=== PATIENT | male | born 1950 | race Caucasian/White ===

== ENCOUNTER 2017-04-13 03:59 | Inpatient (IN) | payer MEDICARE ==
[~2017-04-13] VITALS: Ht 177.8 cm; Wt 111.1 kg
[2017-04-13] VITALS (7 sets, daily range): BP systolic 127–167; BP diastolic 76–83
--- NOTE | ~2017-04-13 | ST ---
[place], [place] EXERCISE STRESS TEST REPORT NAME: TOI CARPENTER [facility] #: [id number] UNIT #: [id number] ROOM: 506 DOCTOR: ARSENIO CLAROS MD BIRTHDATE: [birth year] DOS: 04/13/2017 LEXISCAN STRESS EKG REPORT. REFERRING PHYSICIAN: Igor Mckeon. INDICATION: Precordial chest pain. The patient underwent standard protocol Lexiscan stress EKG. The patient's baseline EKG showed normal sinus rhythm with nonspecific ST-T wave changes. The patient's baseline heart rate is 81 beats per minute with a blood pressure of 112/62. The patient's peak heart rate was 101 with a blood pressure of 148/70. The patient had no chest pain, no EKG changes and no arrhythmias. SUMMARY OF FINDINGS: 1. Unremarkable Lexiscan stress. 2. Please see separate report for perfusion scan results. ARSENIO CLAROS MD CM:STRESS:EXERCISE STRESS TEST REPORT [id number] ARSENIO CLAROS MD
[~2017-04-13 03:59] MED LIST: ACTOS15 M1 PO; ANAPROX DS550 MG PO; ASPIRIN81 M1 PO; GLIPIZIDE5 MG PO; METFORMIN1000 MG PO; NEURONTIN100 MG PO; NORCO 5-325 TA1 EACH PO; Orphenadrine C100 MG PO; PLAVIX75 M1 PO; TRAZODONE50 MG PO; VITAMIN D32000 UNI1 PO; ZESTRIL2.5 MG PO; ZOCOR20 MG PO
[2017-04-13 04:25] LABS: BASO # 0.1 10*3/uL (0.0-0.1); EOS # 0.3 10*3/uL (0.0-0.4); EOS % 2.3 % (1.0-4.0); HEMATOCRIT 40.3 % (42.0-52.0); LYMPH # 3.1 10*3/uL (1.3-4.4); MEAN CELL VOLUME 89.6 fl (80.0-94.0); MEAN CORPUSCULAR HGB 31.1 pg (27.0-31.0); MEAN CORPUSCULAR HGB CONC 34.7 g/dl (33.0-37.0); MEAN PLATELET VOLUME 10.5 fl (9.6-12.3); MONO # 0.8 10*3/uL (0.1-1.0); NEUT # 6.7 10*3/uL (2.3-7.9); NEUT % 61.3 % (47.0-73.0); PLATELET COUNT AUTOMATED 191 10*3/uL (130-400); RED CELL DISTRI WIDTH 13.8 % (0-14.5); WHITE BLOOD COUNT 10.9 10*3/uL (4.8-10.8)
[2017-04-13 04:35] LABS: ACT PARTIAL THROMBO TIME 23.3 SECONDS (20.8-31.5)
[2017-04-13 04:41] LABS: ALBUMIN 3.7 gm/dl (3.1-4.5); ALKALINE PHOSPHATASE 101 U/L (45-117); BUN 13 mg/dl (7-24); CHLORIDE 104 mmol/L (98-107); MAGNESIUM 2.1 mg/dL (1.5-2.1); POTASSIUM 3.8 mmol/L (3.5-5.1); SGOT/AST 16 IU/L (3-35); SGPT/ALT 32 U/L (12-78); SODIUM 139 mmol/L (136-145)
[2017-04-13 04:47] LABS: TROPONIN I < 0.015 ng/ml (<0.045)
[2017-04-13] MEDS ORDERED: TRULICITY1.5 MG/0.5 SC (10:24)
== END 2017-04-13 18:47 | disposition home or self-care (01) | DRG 313 ==
LOC: ED 03:59 → EDHOLD 06:12 → 5E 06:12
PROVIDERS: Emergency Medicine Emergency Medical Services; ADMIT Internal Medicine
PROC: 4A02XM4 Measurement of Cardiac Total Activity, External Approach (ICD-10-PCS; principal; 2017-04-13)
PROC: 3E073KZ Introduction of Other Diagnostic Substance into Coronary Artery, Percutaneous Approach (ICD-10-PCS; principal; 2017-04-13)
DX: R07.89 Other chest pain (principal); E11.65 Type 2 diabetes mellitus with hyperglycemia; I10 Essential (primary) hypertension; E55.9 Vitamin D deficiency, unspecified; E78.5 Hyperlipidemia, unspecified; Z86.73 Personal history of transient ischemic attack (TIA), and cerebral infarction without residual deficits; Z87.891 Personal history of nicotine dependence

== ENCOUNTER 2017-04-21 05:24 | Inpatient (IN) | payer MEDICARE ==
[~2017-04-21] VITALS: Ht 177.8 cm; Wt 107.2 kg
--- NOTE | ~2017-04-21 | O ---
[place], [place] OPERATIVE NOTE NAME: TOI CARPENTER [facility] #: [id number] UNIT #: [id number] ROOM: 401 DOCTOR: MIKEL OLMSTEAD MD BIRTHDATE: [birth year] DOS: 04/21/2017 PREOPERATIVE DIAGNOSIS: Acute cholecystitis. POSTOPERATIVE DIAGNOSIS: Acute cholecystitis. PROCEDURE PERFORMED: Laparoscopic cholecystectomy. SURGEON: Mikel Olmstead M.D. WEBSITE PROGRAMMER: HOWARD. ANESTHESIA: General with endotracheal intubation. INDICATIONS: This is a 66-year-old gentleman who was admitted with acute cholecystitis. It was decided to take the patient to the operating room for a laparoscopic possible open cholecystectomy. The procedure and its complications explained to the patient in detail preoperatively. Complications that were discussed included but were not limited to bleeding, infection, hematoma/seroma/abscess formation, prolonged postoperative pain, damage to underlying vital structures, inadvertent injury to the common bile duct and biloma formation, he agreed to proceed. DESCRIPTION OF PROCEDURE: After identifying the patient, the patient was brought to the operating suite and laid in the supine position. After induction of general anesthesia, the parts were painted and draped in the usual sterile fashion. A timeout procedure was called and an incision in a transverse fashion was made below the umbilicus. The skin and the subcutaneous tissue were incised in the line of the incision. The fascia was incised and 2 stay sutures were taken on either side with the help of 0-Vicryl. A 12 mm Porfirio port was introduced and a pneumoperitoneum was created. Under direct vision, epigastric incision of 10 mm and two 5 mm incisions were made in the right upper quadrant and appropriate size ports were introduced. The gallbladder was surrounded with lot of adhesions to the omentum and it was acutely inflamed. Very carefully dissection was performed in order to separate the gallbladder away from the surrounding structures in order to better get complete mobilization of the gallbladder. Top down technique was employed with the help of electrocautery. After adequate dissection was completed, I elected to put in an Endoloop in the region of the fundus of the gallbladder because despite multiple attempts, adequate visualization of the cystic duct and the cystic artery could not be obtained. PDS Endoloop was placed in the fundus and it was knotted and tightened, the suture was cut with the help of scissors and the specimen was also incised with the help of electrocautery and scissors and removed from the peritoneal cavity within an EndoCatch bag. It was sent for histopathological diagnosis. Hemostasis was achieved in the liver bed with the help of electrocautery and copious amount of saline was used for irrigation. Thereafter through the lateral most port, a 15-Dominican round Rah-Hammer drain was placed and it was positioned in the liver bed and sutured to the overlying skin with the help of 3-0 nylon suture. It was then attached to a bulb. The other three incisions were infiltrated with local anesthesia (1% plain lidocaine) and [place], [place] OPERATIVE NOTE NAME: TOI CARPENTER UNIT #: [id number] ROOM: [facility] DOCTOR: MIKEL OLMSTEAD MD BIRTHDATE: [birth year] approximated with the help of 4-0 Vicryl in a subcuticular running fashion. This was in the region of the umbilicus. This was done after the stay sutures were tied together. The patient was then uneventfully extubated and brought back to the recovery room in stable fashion. There were no complications. Dr. Mikel Olmstead, the attending surgeon, was present throughout the operating case. Blood loss was 250 mL. Mikel Olmstead MD CM:OPRECORD:OPERATIVE NOTE [id number] MIKEL OLMSTEAD MD 04/23/17 1548 interface
--- NOTE | ~2017-04-21 | EKG ---
[place], [place] ELECTROCARDIOGRAM REPORT NAME: TOI CARPENTER UNIT #: [id number] ROOM: 401 DOCTOR: TIMMY MORAN,EBONY BIRTHDATE: [birth year] DOS: 04/21/2017 TIME: 1434 hours. INTERPRETATION: 1. Sinus rhythm. 2. Borderline prolonged QT interval. 3. Probable atrial enlargement. EBONY WARNER MD CM:EKGRPT:ELECTROCARDIOGRAM REPORT [id number] EBONY WARNER MD
[~2017-04-21 05:24] MED LIST changes: +TRULICITY1.5 MG/0.5 SC
[2017-04-21 05:33] VITALS: BP 186/82
[2017-04-21 06:17] LABS: BASO # 0.1 10*3/uL (0.0-0.1); BASO % 0.5 % (0.0-1.0); EOS % 0.1 % (1.0-4.0); HEMATOCRIT 42.2 % (42.0-52.0); HEMOGLOBIN 14.4 g/dl (14.0-18.0); LYMPH # 0.6 10*3/uL (1.3-4.4); LYMPH % 4.8 % (27.0-41.0); MEAN CELL VOLUME 90.8 fl (80.0-94.0); MEAN CORPUSCULAR HGB CONC 34.1 g/dl (33.0-37.0); MEAN PLATELET VOLUME 10.8 fl (9.6-12.3); MONO # 0.6 10*3/uL (0.1-1.0); MONO % 4.9 % (3.0-9.0); NEUT # 11.6 10*3/uL (2.3-7.9); NEUT % 89.3 % (47.0-73.0); PLATELET COUNT AUTOMATED 187 10*3/uL (130-400); RED BLOOD COUNT 4.65 10*6/uL (4.50-5.90); RED CELL DISTRI WIDTH 13.7 % (0-14.5); WHITE BLOOD COUNT 12.9 10*3/uL (4.8-10.8)
[2017-04-21 06:18] VITALS: BP 139/68
[2017-04-21 06:31] LABS: ALBUMIN 3.8 gm/dl (3.1-4.5); ALKALINE PHOSPHATASE 135 U/L (45-117); BUN 15 mg/dl (7-24); CHLORIDE 102 mmol/L (98-107); CREATININE 0.89 mg/dL (0.70-1.30); LIPASE 555 U/L (73-393); MAGNESIUM 2.2 mg/dL (1.5-2.1); POTASSIUM 4.3 mmol/L (3.5-5.1); SGOT/AST 317 IU/L (3-35); SGPT/ALT 244 U/L (12-78); SODIUM 137 mmol/L (136-145); TOTAL PROTEIN 7.8 gm/dL (6.4-8.2)
[2017-04-21 06:39] LABS: TROPONIN I < 0.015 ng/ml (<0.045)
[2017-04-21] MEDS ORDERED: Zofran4 MG PO (06:58)
[2017-04-21 13:15] VITALS: BP 180/80
[2017-04-21 15:02] LABS: BILIRUBIN 1+ (NEGATIVE); BLOOD TRACE-LYSED (NEGATIVE); CLARITY CLEAR (CLEAR); COLOR YELLOW (YELLOW); GLUCOSE 3+ (NEGATIVE); KETONE 2+ (NEGATIVE); LEUKO ESTERASE NEGATIVE (NEGATIVE); NITRITE NEGATIVE (NEGATIVE)
[2017-04-21 15:05] LABS: LIPASE 268 U/L (73-393)
[2017-04-21 15:06] LABS: TROPONIN I < 0.015 ng/ml (<0.045)
[2017-04-21 15:11] LABS: BACTERIA TRACE
[2017-04-21 16:50] VITALS: BP 198/108
[2017-04-21 17:00] VITALS: BP 216/98
[2017-04-21 20:00] VITALS: BP 178/80
[2017-04-22] VITALS: BP 122/51
[2017-04-22 07:40] LABS: HEMATOCRIT 44.1 % (42.0-52.0); HEMOGLOBIN 15.1 g/dl (14.0-18.0); MEAN CELL VOLUME 90.7 fl (80.0-94.0); MEAN CORPUSCULAR HGB 31.1 pg (27.0-31.0); MEAN CORPUSCULAR HGB CONC 34.2 g/dl (33.0-37.0); MEAN PLATELET VOLUME 10.7 fl (9.6-12.3); PLATELET COUNT AUTOMATED 220 10*3/uL (130-400); RED BLOOD COUNT 4.86 10*6/uL (4.50-5.90); WHITE BLOOD COUNT 27.4 10*3/uL (4.8-10.8)
[2017-04-22 08:00] VITALS: BP 160/82
[2017-04-22 08:09] LABS: HEPATITIS B SURFACE AG Negative (Negative); HEPATITIS C VIRUS ANTIBODY <0.1 s/co (0.0-0.9)
[2017-04-22 08:11] LABS: PLATELET SUFFICIENCY NORMAL (NORMAL); TOTAL CELLS COUNTED 100 #CELLS
[2017-04-22 08:15] LABS: BUN 12 mg/dl (7-24); CHLORIDE 103 mmol/L (98-107); CHOLESTEROL 78 mg/dL (<200); CREATININE 0.89 mg/dL (0.70-1.30); MAGNESIUM 2.4 mg/dL (1.5-2.1); PHOSPHOROUS 2.2 mg/dL (2.5-4.9); POTASSIUM 3.8 mmol/L (3.5-5.1); SODIUM 136 mmol/L (136-145); TRIGLYCERIDES 85 mg/dl (<150); VLDL CHOLESTEROL 17 mg/dL (6-40)
[2017-04-22 08:16] LABS: HDL CHOLESTEROL 48 mg/dl (40-60); LDL CHOLESTEROL 13 mg/dL (9-159)
[2017-04-22 09:17] LABS: ALBUMIN 3.7 gm/dl (3.1-4.5); ALKALINE PHOSPHATASE 162 U/L (45-117); BUN 11 mg/dl (7-24); CHLORIDE 102 mmol/L (98-107); LIPASE 173 U/L (73-393); POTASSIUM 3.8 mmol/L (3.5-5.1); SGOT/AST 173 IU/L (3-35); SGPT/ALT 547 U/L (12-78); SODIUM 139 mmol/L (136-145); TOTAL PROTEIN 8.3 gm/dL (6.4-8.2)
[2017-04-22 09:28] LABS: ALBUMIN 3.7 gm/dl (3.1-4.5); BILIRUBIN, DIRECT 3.2 mg/dL (0.0-0.2); TOTAL PROTEIN 8.3 gm/dL (6.4-8.2)
[2017-04-22 12:00] VITALS: BP 140/80
[2017-04-22 16:00] VITALS: BP 180/87
[2017-04-22 20:00] VITALS: BP 142/65
[2017-04-23] VITALS (10 sets, daily range): BP systolic 120–166; BP diastolic 57–77
[2017-04-23 06:17] LABS: HEMATOCRIT 40.3 % (42.0-52.0); HEMOGLOBIN 13.6 g/dl (14.0-18.0); MEAN CORPUSCULAR HGB 31.8 pg (27.0-31.0); MEAN CORPUSCULAR HGB CONC 33.7 g/dl (33.0-37.0); PLATELET COUNT AUTOMATED 195 10*3/uL (130-400); RED BLOOD COUNT 4.28 10*6/uL (4.50-5.90); WHITE BLOOD COUNT 23.4 10*3/uL (4.8-10.8)
[2017-04-23 06:19] LABS: MEAN CELL VOLUME 94.2 fl (80.0-94.0)
[2017-04-23 06:24] LABS: ALBUMIN 2.9 gm/dl (3.1-4.5); ALKALINE PHOSPHATASE 117 U/L (45-117); BUN 12 mg/dl (7-24); CHLORIDE 106 mmol/L (98-107); CREATININE 0.61 mg/dL (0.70-1.30); LIPASE 110 U/L (73-393); MAGNESIUM 2.3 mg/dL (1.5-2.1); PHOSPHOROUS 1.5 mg/dL (2.5-4.9); POTASSIUM 3.7 mmol/L (3.5-5.1); SGOT/AST 42 IU/L (3-35); SGPT/ALT 275 U/L (12-78); SODIUM 137 mmol/L (136-145); TOTAL PROTEIN 7.2 gm/dL (6.4-8.2)
[2017-04-23 06:48] LABS: PLATELET SUFFICIENCY NORMAL (NORMAL); TOTAL CELLS COUNTED 100 #CELLS
[2017-04-24] VITALS: BP 161/68
[2017-04-24 04:00] VITALS: BP 159/76
[2017-04-24 06:03] LABS: MAGNESIUM 2.3 mg/dL (1.5-2.1); PHOSPHOROUS 1.7 mg/dL (2.5-4.9)
[2017-04-24 06:09] LABS: ALBUMIN 2.4 gm/dl (3.1-4.5); BUN 15 mg/dl (7-24); CHLORIDE 108 mmol/L (98-107); CREATININE 0.54 mg/dL (0.70-1.30); POTASSIUM 3.7 mmol/L (3.5-5.1); SGOT/AST 31 IU/L (3-35); SGPT/ALT 173 U/L (12-78); SODIUM 141 mmol/L (136-145); TOTAL PROTEIN 6.5 gm/dL (6.4-8.2)
[2017-04-24 06:10] LABS: ALKALINE PHOSPHATASE 101 U/L (45-117)
[2017-04-24 06:13] LABS: BASO # 0.1 10*3/uL (0.0-0.1); BASO % 0.4 % (0.0-1.0); EOS # 0.1 10*3/uL (0.0-0.4); EOS % 0.7 % (1.0-4.0); LYMPH # 1.2 10*3/uL (1.3-4.4); LYMPH % 8.9 % (27.0-41.0); MEAN CELL VOLUME 95.6 fl (80.0-94.0); MEAN CORPUSCULAR HGB 31.4 pg (27.0-31.0); MEAN CORPUSCULAR HGB CONC 32.9 g/dl (33.0-37.0); MEAN PLATELET VOLUME 11.1 fl (9.6-12.3); MONO % 7.4 % (3.0-9.0); NEUT # 10.9 10*3/uL (2.3-7.9); PLATELET COUNT AUTOMATED 188 10*3/uL (130-400); RED BLOOD COUNT 3.66 10*6/uL (4.50-5.90); RED CELL DISTRI WIDTH 14.2 % (0-14.5); WHITE BLOOD COUNT 13.3 10*3/uL (4.8-10.8)
[2017-04-24 06:53] LABS: HEMOGLOBIN 11.5 g/dl (14.0-18.0)
[2017-04-24 08:00] VITALS: BP 159/80
[2017-04-24 12:00] VITALS: BP 164/78
[2017-04-24 16:00] VITALS: BP 151/68
[2017-04-24 20:00] VITALS: BP 133/54
[2017-04-25] VITALS: BP 158/82
[2017-04-25 04:00] VITALS: BP 168/75
[2017-04-25 06:29] LABS: BASO # 0.1 10*3/uL (0.0-0.1); BASO % 0.6 % (0.0-1.0); EOS # 0.4 10*3/uL (0.0-0.4); EOS % 3.6 % (1.0-4.0); HEMATOCRIT 34.1 % (42.0-52.0); HEMOGLOBIN 11.4 g/dl (14.0-18.0); LYMPH # 1.6 10*3/uL (1.3-4.4); LYMPH % 15.5 % (27.0-41.0); MEAN CELL VOLUME 94.7 fl (80.0-94.0); MEAN CORPUSCULAR HGB 31.7 pg (27.0-31.0); MEAN CORPUSCULAR HGB CONC 33.4 g/dl (33.0-37.0); MEAN PLATELET VOLUME 10.6 fl (9.6-12.3); MONO # 0.8 10*3/uL (0.1-1.0); MONO % 8.4 % (3.0-9.0); NEUT # 7.1 10*3/uL (2.3-7.9); NEUT % 71.6 % (47.0-73.0); PLATELET COUNT AUTOMATED 193 10*3/uL (130-400); RED CELL DISTRI WIDTH 13.7 % (0-14.5)
[2017-04-25 06:42] LABS: ALBUMIN 2.3 gm/dl (3.1-4.5); BUN 10 mg/dl (7-24); CHLORIDE 107 mmol/L (98-107); CREATININE 0.48 mg/dL (0.70-1.30); LIPASE 121 U/L (73-393); MAGNESIUM 2.2 mg/dL (1.5-2.1); PHOSPHOROUS 1.9 mg/dL (2.5-4.9); POTASSIUM 3.6 mmol/L (3.5-5.1); SGPT/ALT 118 U/L (12-78); SODIUM 141 mmol/L (136-145); TOTAL PROTEIN 6.2 gm/dL (6.4-8.2)
[2017-04-25 06:43] LABS: ALKALINE PHOSPHATASE 93 U/L (45-117); SGOT/AST 22 IU/L (3-35)
[2017-04-25 08:00] VITALS: BP 159/74
[2017-04-25] MEDS ORDERED: Percocet 325 MG1 TAB PO (10:45)
== END 2017-04-25 11:25 | disposition home or self-care (01) | DRG 853 ==
LOC: ED 05:24 → 4E 15:53
PROVIDERS: Emergency Medicine; Student in an Organized Health Care Education/Training Program; Surgery; ADMIT Emergency Medicine
PROC: 0FT44ZZ Resection of Gallbladder, Percutaneous Endoscopic Approach (ICD-10-PCS; principal; 2017-04-21)
DX: A41.9 Sepsis, unspecified organism (principal); K85.90 Acute pancreatitis without necrosis or infection, unspecified; K81.0 Acute cholecystitis; E83.41 Hypermagnesemia; R17 Unspecified jaundice; E66.01 Morbid (severe) obesity due to excess calories; I16.0 Hypertensive urgency; I10 Essential (primary) hypertension; E11.9 Type 2 diabetes mellitus without complications; E78.00 Pure hypercholesterolemia, unspecified; Z86.73 Personal history of transient ischemic attack (TIA), and cerebral infarction without residual deficits; Z79.84 Long term (current) use of oral hypoglycemic drugs; Z79.82 Long term (current) use of aspirin; Z79.899 Other long term (current) drug therapy; Z87.891 Personal history of nicotine dependence; Z68.33 Body mass index [BMI] 33.0-33.9, adult; Z84.89 Family history of other specified conditions; Z82.49 Family history of ischemic heart disease and other diseases of the circulatory system

== ENCOUNTER 2019-01-09 01:00 | Emergency (ER) | payer MEDICARE ==
[~2019-01-09] VITALS: Ht 177.8 cm; Wt 108.9 kg
[~2019-01-09 01:00] MED LIST changes: +Percocet 325 MG1 TAB PO; +Zofran4 MG PO
[2019-01-09 01:21] LABS: BASO # 0.1 10*3/uL (0.0-0.1); BASO % 1.3 % (0.0-1.0); EOS # 0.2 10*3/uL (0.0-0.4); EOS % 2.6 % (1.0-4.0); HEMATOCRIT 48.2 % (42.0-52.0); HEMOGLOBIN 16.8 g/dl (14.0-18.0); LYMPH # 2.6 10*3/uL (1.3-4.4); LYMPH % 29.3 % (27.0-41.0); MEAN CELL VOLUME 88.6 fl (80.0-94.0); MEAN CORPUSCULAR HGB 30.9 pg (27.0-31.0); MEAN CORPUSCULAR HGB CONC 34.9 g/dl (33.0-37.0); MEAN PLATELET VOLUME 10.7 fl (9.6-12.3); MONO # 0.7 10*3/uL (0.1-1.0); MONO % 8.2 % (3.0-9.0); NEUT # 5.2 10*3/uL (2.3-7.9); NEUT % 58.4 % (47.0-73.0); PLATELET COUNT AUTOMATED 210 10*3/uL (130-400); RED BLOOD COUNT 5.44 10*6/uL (4.50-5.90); RED CELL DISTRI WIDTH 13.4 % (0-14.5); WHITE BLOOD COUNT 8.9 10*3/uL (4.8-10.8)
[2019-01-09 01:25] LABS: BILIRUBIN NEGATIVE (NEGATIVE); BLOOD 3+ (NEGATIVE); CLARITY SL CLOUDY (CLEAR); COLOR YELLOW (YELLOW); GLUCOSE 3+ (NEGATIVE); KETONE NEGATIVE (NEGATIVE); LEUKO ESTERASE 1+ (NEGATIVE); NITRITE NEGATIVE (NEGATIVE); PH 5.5 (5.0-9.0); SPECIFIC GRAVITY 1.015 (1.005-1.030)
[2019-01-09 01:34] LABS: BACTERIA 1+; RBC 41-50 rbc/hpf (0-2); WBC 21-30 wbc/hpf (0-5)
[2019-01-09 01:37] LABS: ALKALINE PHOSPHATASE 119 U/L (45-117); BUN 8 mg/dl (7-24); CHLORIDE 103 mmol/L (98-107); CREATININE 1.01 mg/dL (0.70-1.30); POTASSIUM 4.2 mmol/L (3.5-5.1); SGOT/AST 26 IU/L (3-35); SGPT/ALT 39 U/L (12-78); SODIUM 136 mmol/L (136-145); TOTAL PROTEIN 8.2 gm/dL (6.4-8.2)
[2019-01-09] MEDS ORDERED: SEPTDS PO ×2 (02:08→02:21)
== END 2019-01-09 02:24 | disposition home or self-care (01) ==
LOC: ED 01:00
PROVIDERS: Student in an Organized Health Care Education/Training Program
DX: N39.0 Urinary tract infection, site not specified (principal); E11.9 Type 2 diabetes mellitus without complications; I10 Essential (primary) hypertension; E78.5 Hyperlipidemia, unspecified; E66.01 Morbid (severe) obesity due to excess calories; Z87.891 Personal history of nicotine dependence; Z87.442 Personal history of urinary calculi; Z79.899 Other long term (current) drug therapy; Z79.82 Long term (current) use of aspirin; Z79.84 Long term (current) use of oral hypoglycemic drugs

== ENCOUNTER → 2019-01-18 | Outpatient (CLI) | payer MEDICARE ==
[~2019-01-18] MED LIST changes: +SEPTDS PO
== END | disposition home or self-care (01) ==
LOC: CT 10:29
DX: R31.9 Hematuria, unspecified (principal)

== ENCOUNTER 2019-07-17 20:00 | Emergency (ER) | payer MEDICARE ==
[~2019-07-17] VITALS: Ht 180.3 cm; Wt 108.9 kg
[~2019-07-17 20:00] MED LIST changes: +DOXYCYCLINE100 M3 PO
[2019-07-17 21:08] LABS: BASO # 0.1 10*3/uL (0.0-0.1); BASO % 0.7 % (0.0-1.0); EOS # 0.1 10*3/uL (0.0-0.4); EOS % 0.5 % (1.0-4.0); HEMOGLOBIN 17.7 g/dl (14.0-18.0); LYMPH # 1.5 10*3/uL (1.3-4.4); LYMPH % 8.1 % (27.0-41.0); MEAN CELL VOLUME 89.6 fl (80.0-94.0); MEAN CORPUSCULAR HGB 31.1 pg (27.0-31.0); MEAN CORPUSCULAR HGB CONC 34.7 g/dl (33.0-37.0); MEAN PLATELET VOLUME 10.3 fl (9.6-12.3); MONO % 5.5 % (3.0-9.0); NEUT # 15.5 10*3/uL (2.3-7.9); NEUT % 84.8 % (47.0-73.0); PLATELET COUNT AUTOMATED 282 10*3/uL (130-400); RED BLOOD COUNT 5.69 10*6/uL (4.50-5.90); RED CELL DISTRI WIDTH 13.7 % (0-14.5); WHITE BLOOD COUNT 18.3 10*3/uL (4.8-10.8)
[2019-07-17 21:22] LABS: INTERNATIONAL NORM RATIO 0.9 (2.0-3.5)
[2019-07-17 21:31] LABS: ALKALINE PHOSPHATASE 145 U/L (45-117); BUN 15 mg/dl (7-24); CHLORIDE 103 mmol/L (98-107); CREATININE 1.17 mg/dL (0.70-1.30); POTASSIUM 4.3 mmol/L (3.5-5.1); SGOT/AST 21 IU/L (3-35); SGPT/ALT 31 U/L (12-78); SODIUM 134 mmol/L (136-145); TOTAL PROTEIN 8.4 gm/dL (6.4-8.2)
[2019-07-17] MEDS ORDERED: PYRIDIUM200 M1 PO (22:52)
== END 2019-07-18 00:06 | disposition left against medical advice (07) ==
LOC: ED 20:00
PROVIDERS: Physician Assistant
DX: T83.038A Leakage of other urinary catheter, initial encounter (principal); I10 Essential (primary) hypertension; E11.9 Type 2 diabetes mellitus without complications; Z79.899 Other long term (current) drug therapy; Z79.82 Long term (current) use of aspirin; Z87.891 Personal history of nicotine dependence; Z86.73 Personal history of transient ischemic attack (TIA), and cerebral infarction without residual deficits; Y84.6 Urinary catheterization as the cause of abnormal reaction of the patient, or of later complication, without mention of misadventure at the time of the procedure; Y92.89 Other specified places as the place of occurrence of the external cause

== ENCOUNTER 2020-10-23 15:21 | Emergency (ER) | payer MEDICARE ==
[~2020-10-23] VITALS: Ht 180.3 cm; Wt 102.1 kg
[~2020-10-23 15:21] MED LIST changes: +PYRIDIUM200 M1 PO
[2020-10-23 16:00] LABS: BASO # 0.1 10*3/uL (0.0-0.1); BASO % 0.7 % (0.0-1.0); EOS # 0.1 10*3/uL (0.0-0.4); EOS % 0.6 % (1.0-4.0); HEMATOCRIT 40.4 % (42.0-52.0); LYMPH # 1.3 10*3/uL (1.3-4.4); LYMPH % 12.7 % (27.0-41.0); MEAN CELL VOLUME 85.2 fl (80.0-94.0); MEAN CORPUSCULAR HGB 29.1 pg (27.0-31.0); MEAN CORPUSCULAR HGB CONC 34.2 g/dl (33.0-37.0); MEAN PLATELET VOLUME 9.9 fl (9.6-12.3); MONO # 0.6 10*3/uL (0.1-1.0); MONO % 5.6 % (3.0-9.0); NEUT # 7.9 10*3/uL (2.3-7.9); PLATELET COUNT AUTOMATED 279 10*3/uL (130-400); RED BLOOD COUNT 4.74 10*6/uL (4.50-5.90); RED CELL DISTRI WIDTH 15.3 % (0-14.5); WHITE BLOOD COUNT 9.8 10*3/uL (4.8-10.8)
[2020-10-23 16:14] LABS: ALBUMIN 3.7 gm/dl (3.1-4.5); ALKALINE PHOSPHATASE 133 U/L (45-117); BUN 17 mg/dl (7-24); CHLORIDE 106 mmol/L (98-107); CREATININE 1.05 mg/dL (0.70-1.30); POTASSIUM 4.2 mmol/L (3.5-5.1); SGOT/AST 7 IU/L (3-35); SGPT/ALT 14 U/L (12-78); SODIUM 137 mmol/L (136-145); TOTAL PROTEIN 8.1 gm/dL (6.4-8.2)
[2020-10-23] MEDS ORDERED: SEPTDS PO (18:11)
[2020-10-23] MEDS ORDERED: CEPHALEXIN500 M1 PO (18:11)
== END 2020-10-23 18:38 | disposition home or self-care (01) ==
LOC: ED 15:21
PROVIDERS: Physician Assistant
DX: L08.9 Local infection of the skin and subcutaneous tissue, unspecified (principal); E11.9 Type 2 diabetes mellitus without complications; I10 Essential (primary) hypertension; Z79.899 Other long term (current) drug therapy; Z79.2 Long term (current) use of antibiotics; Z79.82 Long term (current) use of aspirin; Z98.890 Other specified postprocedural states; Z87.891 Personal history of nicotine dependence; Z86.73 Personal history of transient ischemic attack (TIA), and cerebral infarction without residual deficits; Z87.442 Personal history of urinary calculi

== ENCOUNTER 2021-04-17 18:41 | Emergency (ER) | payer MEDICARE ==
[~2021-04-17] VITALS: Ht 182.9 cm; Wt 120.2 kg
[~2021-04-17 18:41] MED LIST changes: +CEPHALEXIN500 M1 PO
[2021-04-17] MEDS ORDERED: SEPTDS PO ×2 (19:14)
== END 2021-04-17 19:38 | disposition home or self-care (01) ==
LOC: ED 18:41
DX: L03.115 Cellulitis of right lower limb (principal)

== ENCOUNTER 2021-04-30 14:32 | Inpatient (IN) | payer MEDICARE ==
[~2021-04-30] VITALS: Ht 154.9 cm; Wt 111.8 kg
[2021-04-30 14:43] VITALS: BP 139/77
[2021-04-30 15:28] LABS: BASO # 0.1 10*3/uL (0.0-0.1); BASO % 0.6 % (0.0-1.0); EOS # 0.1 10*3/uL (0.0-0.4); EOS % 0.9 % (1.0-4.0); HEMATOCRIT 38.2 % (42.0-52.0); LYMPH # 1.3 10*3/uL (1.3-4.4); LYMPH % 12.6 % (27.0-41.0); MEAN CELL VOLUME 85.3 fl (80.0-94.0); MEAN CORPUSCULAR HGB 28.3 pg (27.0-31.0); MEAN CORPUSCULAR HGB CONC 33.2 g/dl (33.0-37.0); MEAN PLATELET VOLUME 10.3 fl (9.6-12.3); MONO # 0.6 10*3/uL (0.1-1.0); MONO % 5.6 % (3.0-9.0); NEUT % 79.6 % (47.0-73.0); PLATELET COUNT AUTOMATED 228 10*3/uL (130-400); RED BLOOD COUNT 4.48 10*6/uL (4.50-5.90); RED CELL DISTRI WIDTH 14.8 % (0-14.5); WHITE BLOOD COUNT 10.1 10*3/uL (4.8-10.8)
[2021-04-30 15:43] LABS: ALBUMIN 3.3 gm/dl (3.1-4.5); ALKALINE PHOSPHATASE 124 U/L (45-117); BUN 16 mg/dl (7-24); CHLORIDE 103 mmol/L (98-107); LIPASE 246 U/L (73-393); POTASSIUM 4.2 mmol/L (3.5-5.1); SGOT/AST 8 IU/L (3-35); SGPT/ALT 17 U/L (12-78); SODIUM 134 mmol/L (136-145); TOTAL PROTEIN 7.9 gm/dL (6.4-8.2)
[2021-04-30 15:47] LABS: TROPONIN I < 0.015 ng/ml (<0.045)
[2021-04-30] MEDS ORDERED: VITAMIN D250 MCG PO (15:47)
[2021-04-30] MEDS ORDERED: TAB-A-VITE MUL1 EAC1 PO (15:48)
[2021-04-30] MEDS ORDERED: PIOGLITAZONE HC45 MG PO (15:49)
[2021-04-30] MEDS ORDERED: JARDIANCE10 MG PO (15:51)
[2021-04-30 17:30] VITALS: BP 137/60
[2021-04-30] MEDS ORDERED: GABAPENTIN600 MG PO (19:51)
[2021-04-30] MEDS ORDERED: METFORMIN850 MG PO (19:54)
[2021-04-30] MEDS ORDERED: GLIPIZIDE10 M1 PO (19:57)
[2021-04-30] MEDS ORDERED: LISINOPRIL20 MG PO (19:58)
[2021-04-30 20:00] VITALS: BP 117/58
[2021-05-01] VITALS: BP 121/66
[2021-05-01 06:43] LABS: ALBUMIN 3.6 gm/dl (3.1-4.5); ALKALINE PHOSPHATASE 115 U/L (45-117); BUN 14 mg/dl (7-24); CHLORIDE 106 mmol/L (98-107); CHOLESTEROL 140 mg/dL (<200); CREATININE 0.85 mg/dL (0.70-1.30); LDL CHOLESTEROL 56 mg/dL (9-159); POTASSIUM 3.7 mmol/L (3.5-5.1); SGOT/AST 10 IU/L (3-35); SGPT/ALT 18 U/L (12-78); SODIUM 138 mmol/L (136-145); TOTAL PROTEIN 7.9 gm/dL (6.4-8.2); TRIGLYCERIDES 214 mg/dl (<150)
[2021-05-01 06:50] LABS: BASO # 0.1 10*3/uL (0.0-0.1); EOS # 0.2 10*3/uL (0.0-0.4); HEMATOCRIT 41.3 % (42.0-52.0); LYMPH # 2.6 10*3/uL (1.3-4.4); LYMPH % 25.2 % (27.0-41.0); MEAN CELL VOLUME 89.2 fl (80.0-94.0); MEAN CORPUSCULAR HGB 28.5 pg (27.0-31.0); MEAN PLATELET VOLUME 10.5 fl (9.6-12.3); MONO # 0.7 10*3/uL (0.1-1.0); MONO % 7.1 % (3.0-9.0); NEUT # 6.6 10*3/uL (2.3-7.9); NEUT % 64.1 % (47.0-73.0); PLATELET COUNT AUTOMATED 264 10*3/uL (130-400); RED BLOOD COUNT 4.63 10*6/uL (4.50-5.90); RED CELL DISTRI WIDTH 15.2 % (0-14.5); WHITE BLOOD COUNT 10.4 10*3/uL (4.8-10.8)
[2021-05-01 07:47] LABS: VITAMIN D, 25-HYDROXY 40.4 ng/mL (30-100)
[2021-05-01 08:00] VITALS: BP 133/78
[2021-05-01 12:00] VITALS: BP 174/71
[2021-05-01 16:00] VITALS: BP 116/60
[2021-05-01 20:00] VITALS: BP 163/79
[2021-05-02] VITALS: BP 150/71
[2021-05-02 06:33] LABS: BASO # 0.1 10*3/uL (0.0-0.1); BASO % 1.1 % (0.0-1.0); EOS # 0.2 10*3/uL (0.0-0.4); EOS % 2.4 % (1.0-4.0); HEMATOCRIT 37.2 % (42.0-52.0); LYMPH % 23.2 % (27.0-41.0); MEAN CELL VOLUME 87.5 fl (80.0-94.0); MEAN CORPUSCULAR HGB 28.2 pg (27.0-31.0); MEAN CORPUSCULAR HGB CONC 32.3 g/dl (33.0-37.0); MEAN PLATELET VOLUME 10.5 fl (9.6-12.3); MONO # 0.7 10*3/uL (0.1-1.0); MONO % 8.1 % (3.0-9.0); NEUT # 5.4 10*3/uL (2.3-7.9); NEUT % 64.8 % (47.0-73.0); PLATELET COUNT AUTOMATED 229 10*3/uL (130-400); RED BLOOD COUNT 4.25 10*6/uL (4.50-5.90); WHITE BLOOD COUNT 8.4 10*3/uL (4.8-10.8)
[2021-05-02 06:40] LABS: ALKALINE PHOSPHATASE 95 U/L (45-117); BUN 9 mg/dl (7-24); CHLORIDE 112 mmol/L (98-107); CREATININE 0.73 mg/dL (0.70-1.30); SGOT/AST 7 IU/L (3-35); SGPT/ALT 15 U/L (12-78); SODIUM 139 mmol/L (136-145); TOTAL PROTEIN 6.8 gm/dL (6.4-8.2)
[2021-05-02 06:57] LABS: POTASSIUM 4.8 mmol/L (3.5-5.1)
[2021-05-02 08:00] VITALS: BP 133/42
[2021-05-02 12:00] VITALS: BP 143/74
[2021-05-02 16:00] VITALS: BP 152/78
[2021-05-02 20:00] VITALS: BP 119/52
[2021-05-03] VITALS: BP 139/69
[2021-05-03 06:07] LABS: BASO # 0.1 10*3/uL (0.0-0.1); BASO % 1.3 % (0.0-1.0); EOS # 0.2 10*3/uL (0.0-0.4); EOS % 2.7 % (1.0-4.0); HEMATOCRIT 37.2 % (42.0-52.0); LYMPH # 2.2 10*3/uL (1.3-4.4); LYMPH % 27.8 % (27.0-41.0); MEAN CORPUSCULAR HGB 28.2 pg (27.0-31.0); MEAN CORPUSCULAR HGB CONC 31.7 g/dl (33.0-37.0); MEAN PLATELET VOLUME 10.3 fl (9.6-12.3); MONO # 0.7 10*3/uL (0.1-1.0); MONO % 9.2 % (3.0-9.0); NEUT # 4.5 10*3/uL (2.3-7.9); NEUT % 58.6 % (47.0-73.0); PLATELET COUNT AUTOMATED 223 10*3/uL (130-400); RED BLOOD COUNT 4.18 10*6/uL (4.50-5.90); RED CELL DISTRI WIDTH 15.2 % (0-14.5); WHITE BLOOD COUNT 7.7 10*3/uL (4.8-10.8)
[2021-05-03 06:14] LABS: ALBUMIN 2.8 gm/dl (3.1-4.5); ALKALINE PHOSPHATASE 88 U/L (45-117); BUN 10 mg/dl (7-24); CHLORIDE 110 mmol/L (98-107); CREATININE 0.75 mg/dL (0.70-1.30); POTASSIUM 3.9 mmol/L (3.5-5.1); SGOT/AST 9 IU/L (3-35); SGPT/ALT 14 U/L (12-78); SODIUM 140 mmol/L (136-145); TOTAL PROTEIN 6.8 gm/dL (6.4-8.2)
[2021-05-03 08:00] VITALS: BP 140/72
[2021-05-03 12:00] VITALS: BP 143/67
[2021-05-03] MEDS ORDERED: LANTUS SOL100 UNIT/1 SC (14:49)
[2021-05-03] MEDS ORDERED: DOXYCYCLINE HY100 M3 PO (14:49)
[2021-05-03 16:00] VITALS: BP 120/82
== END 2021-05-03 18:19 | disposition home health service (06) | DRG 300 ==
LOC: ED 14:32 → 4E 15:06 → EDHOLD 15:06 → 4E 17:14 → EDHOLD 17:28 → 4E 17:37
PROVIDERS: Emergency Medicine; Family Medicine; Student in an Organized Health Care Education/Training Program; ADMIT Internal Medicine; ATTEND Internal Medicine
DX: E11.52 Type 2 diabetes mellitus with diabetic peripheral angiopathy with gangrene (principal); I96 Gangrene, not elsewhere classified; L03.115 Cellulitis of right lower limb; E44.0 Moderate protein-calorie malnutrition; E87.1 Hypo-osmolality and hyponatremia; E87.2 Acidosis; M86.8X7 Other osteomyelitis, ankle and foot; Z68.42 Body mass index [BMI] 45.0-49.9, adult; E11.69 Type 2 diabetes mellitus with other specified complication; D64.9 Anemia, unspecified; B35.1 Tinea unguium; Z20.822 Contact with and (suspected) exposure to COVID-19; E11.65 Type 2 diabetes mellitus with hyperglycemia; M24.573 Contracture, unspecified ankle; E11.42 Type 2 diabetes mellitus with diabetic polyneuropathy; Z86.73 Personal history of transient ischemic attack (TIA), and cerebral infarction without residual deficits; Z90.49 Acquired absence of other specified parts of digestive tract; Z87.891 Personal history of nicotine dependence; Z82.49 Family history of ischemic heart disease and other diseases of the circulatory system; Z79.899 Other long term (current) drug therapy; Z79.82 Long term (current) use of aspirin